=== PATIENT | female | born 1980 | race Asian ===

== ENCOUNTER 2017-08-11 14:34 | Emergency (ER) | payer OTHER ==
[2017-08-11 14:52] VITALS: BP 154/95
== END 2017-08-11 16:05 | disposition home or self-care (01) ==
LOC: ED 14:34
DX: M54.2 Cervicalgia (principal)
CPT/HCPCS: J3010

== ENCOUNTER 2017-12-29 08:14 | Emergency (ER) | payer OTHER ==
[~2017-12-29] VITALS: Ht 157.5 cm; Wt 58.7 kg
[2017-12-29 08:24] VITALS: Ht 157.5 cm; Wt 58.7 kg
[2017-12-29 09:32] LABS: BASOPHIL % 0.8 % (0-2); PLATELET COUNT 300 x10^3mcL (130-400)
[2017-12-29 09:41] LABS: CALCIUM 8.8 mg/dL (8.5-10.1); CARBON DIOXIDE 25.9 mmol/L (21-32); CHLORIDE SERUM 105 mmol/L (98-107); CREATININE SERUM 0.8 mg/dL (0.6-1.0); GFR1 > 60 mL/min; GLUCOSE SERUM 85 mg/dL (74-106); POTASSIUM SERUM 4.4 mmol/L (3.5-5.1); SODIUM SERUM 138 mmol/L (136-145)
[2017-12-29 11:00] VITALS: BP 136/80
== END 2017-12-29 11:00 | disposition home or self-care (01) ==
LOC: ED 08:14
PROVIDERS: Emergency Medicine
DX: N83.209 Unspecified ovarian cyst, unspecified side (principal); Z88.5 Allergy status to narcotic agent; Z88.6 Allergy status to analgesic agent
CPT/HCPCS: 36415; J2270

== ENCOUNTER 2019-05-06 07:03 | Day surgery (SDC) | payer OTHER ==
[~2019-05-06] VITALS: Ht 157.5 cm; Wt 65.8 kg
[2019-05-06 07:39] VITALS: BP 121/76
[2019-05-06 12:08] VITALS: BP 114/73
== END 2019-05-06 10:20 | disposition home or self-care (01) ==
LOC: DS 07:03 → OR 08:00 → GI 08:30 → OR 08:30 → DS 10:20
DX: K21.9 Gastro-esophageal reflux disease without esophagitis (principal); Z88.8 Allergy status to other drugs, medicaments and biological substances; Z79.899 Other long term (current) drug therapy; Z98.890 Other specified postprocedural states; Z80.51 Family history of malignant neoplasm of kidney
CPT/HCPCS: 43235; J1200; J1610; J2250; J2310; J3010; J3490

== ENCOUNTER 2019-05-18 09:24 | Emergency (ER) | payer OTHER ==
[~2019-05-18] VITALS: Ht 157.5 cm; Wt 68.0 kg
[2019-05-18 09:29] VITALS: Ht 157.5 cm; Wt 68.0 kg
[2019-05-18 11:45] VITALS: BP 129/79
== END 2019-05-18 11:45 | disposition home or self-care (01) ==
LOC: ED 09:24
DX: S80.861A Insect bite (nonvenomous), right lower leg, initial encounter (principal); Z91.018 Allergy to other foods; Z88.6 Allergy status to analgesic agent; Z88.1 Allergy status to other antibiotic agents; W57.XXXA Bitten or stung by nonvenomous insect and other nonvenomous arthropods, initial encounter; Y93.89 Activity, other specified; Y92.89 Other specified places as the place of occurrence of the external cause; Y99.8 Other external cause status
CPT/HCPCS: J0696; J1200; J7512